=== PATIENT | female | born 1985 | race American Indian/Alaskan Native ===

== ENCOUNTER 2017-08-30 17:37 | Emergency (ER) | payer MEDICAID ==
[2017-08-30 18:04] VITALS: BMI 41.5
[2017-08-30 18:05] VITALS: RESP 20; O2SAT 98
[2017-08-30] MEDS ORDERED: Sodium Chloride 0.9% 1,000 ML IV ONE (19:15)
[2017-08-30] MEDS ORDERED: Iohexol 240 (50 ml) PO ONE (19:15)
[2017-08-30] MEDS ORDERED: Iohexol 240 (50 ml) ONE (19:40)
[2017-08-30] MEDS ORDERED: Iodixanol 320 MG/ML 100 ML BOTTLE IV ONE (19:40)
[2017-08-30] MEDS ORDERED: Sodium Chloride 0.9% 1,000 ML ONE (19:41)
[2017-08-30 20:13] LABS: BASO # 0.1 K/uL (0.0-0.2); BASO % 0.6 % (0.0-2.0); EOS # 0.3 K/uL (0.0-0.7); EOS % 3.3 % (0.0-4.0); HEMOGLOBIN 13.7 g/dL (11.0-16.0); LYMPH # 3.1 K/uL (1.0-4.3); LYMPH % 34.4 % (20.0-40.0); MEAN CORPUSCULAR HEMOGLOBIN 32.1 pg (27.0-31.0); MEAN CORPUSCULAR HGB CONC 33.8 g/dL (33.0-37.0); MEAN PLATELET VOLUME 8.7 fL (7.2-11.7); MONO # 0.6 K/uL (0.0-0.8); MONO % 7.2 % (0.0-10.0); NEUT # 4.9 K/uL (1.8-7.0); NEUT % 54.5 % (50.0-75.0); NRBC % 0.1 % (0.0-2.0); RBC 4.27 Mil/uL (3.80-5.20); RED CELL DISTRIBUTION WIDTH 13.6 % (11.5-14.5); WHITE BLOOD COUNT 8.9 K/uL (4.8-10.8)
[2017-08-30 20:24] LABS: CALCIUM 8.7 mg/dl (8.6-10.4); GFR AFRICAN-AMERICAN > 60; GFR NON-AFRICAN AMERICAN > 60; LIPASE 58 U/L (23-300)
--- NOTE | 2017-08-30 20:24 | C.PDOC ---
History Of Present Illness 31 year old female, with no significant PMHx, presents to the ED for evaluation of generalized abdominal pain which began 2 days ago. Patient describes her symptoms as an intermittent "twisting" discomfort that has been worsening since onset. She also reports mild nausea but denies any episodes of vomiting. Patient's bowel movement consisted of soft, mushy stool two days ago. She denies diarrhea, fever, chills, dysuria, and hematuria at this time. Her LMP was 07/25. Time Seen by Provider: 08/30/17 19:00 Chief Complaint (Nursing): Abdominal Pain History Per: Patient History/Exam Limitations: no limitations Onset/Duration Of Symptoms: Days (2), Intermittent Episodes Current Symptoms Are (Timing): Worse Location Of Pain/Discomfort: Diffuse Radiation Of Pain To:: None Quality Of Discomfort: "Pain", Other (twisting ) Associated Symptoms: Nausea. denies: Fever, Chills, Vomiting, Diarrhea, Urinary Symptoms Additional History Per: Patient Past Medical History Reviewed: Historical Data, Nursing Documentation, Vital Signs Vital Signs: Last Vital Signs Temp 97.8 F 08/30/17 18:04 Pulse 81 08/30/17 18:04 Resp 20 08/30/17 18:04 BP 117/79 08/30/17 18:04 Pulse Ox 98 08/30/17 20:30 - Medical History PMH: No Chronic Diseases Surgical History: No Surg Hx Family History: States: Unknown Family Hx - Social History Hx Alcohol Use: No Hx Substance Use: No - Immunization History Hx Tetanus Toxoid Vaccination: No Hx Influenza Vaccination: No Hx Pneumococcal Vaccination: No Review Of Systems Constitutional: Negative for: Fever, Chills Gastrointestinal: Positive for: Nausea, Abdominal Pain (generalized ). Negative for: Vomiting, Diarrhea Genitourinary: Negative for: Dysuria, Hematuria Physical Exam - Physical Exam Appears: Non-toxic, No Acute Distress Skin: Normal Color, Warm, Dry Head: Atraumatic, Normacephalic Eye(s): bilateral: Normal Inspection Oral Mucosa: Moist Neck: Supple Chest: Symmetrical, No Deformity, No Tenderness Cardiovascular: Rhythm Regular, No Murmur Respiratory: Normal Breath Sounds, No Rales, No Rhonchi, No Wheezing Gastrointestinal/Abdominal: Bowel Sounds (unremarkable ), Soft, Tenderness ( diffuse ), No Guarding, No Rebound Extremity: Normal ROM, Capillary Refill (less than 2 seconds ) Neurological/Psych: Oriented x3, Normal Speech, Normal Cognition ED Course And Treatment - Laboratory Results Result Diagrams: 08/30/17 20:02 08/30/17 20:02 Lab Interpretation: No Acute Changes O2 Sat by Pulse Oximetry: 98 (on RA) Pulse Ox Interpretation: Normal - CT Scan/US CT abdomen and pelvis Other Rad Studies (CT/US): Read By Radiologist, Radiology Report Reviewed CT/US Interpretation: Accession No. : [id number]. Patient Name / ID : XAVIER PALMA / [id number]. Exam Date : 08/30/2017 22:05:47 ( Approved ). Study Comment : Sex / Age : F / 31Y. Creator : Sudhir Perez MD. Dictator : Customs Director : Automotive Service Technician : Sudhir Perez MD. Approver2 : Report Date : 08/30/2017 23:06:00. My Comment : . [facility] Division of Radiology. [address] [place] [address]. Tel. no. . . . Patient Name: LOUIE PARK . Pt. Address: [address] [place] [address] Rec #: [id number]. [place] [address]: Sabine Urbina MD. Pt Order Location: ER. : 1985 Female Age: 31 Order #: [id number]. Reason for exam: abd pain. . . . . . CT Scan. . . ABD PELVIS PO IV CONTRAST Exam Date : 08/30/17. . This imaging exam was performed at [facility]. EXAM: CT Abdomen and Pelvis With Intravenous Contrast. . CLINICAL HISTORY: 31 years old, female; Pain; Abdominal pain; Periumbilical; Additional info: Abd pain. . TECHNIQUE: Axial computed tomography images of the abdomen and pelvis with intravenous. contrast. All CT scans at this facility use one or more dose reduction. techniques, viz.: automated exposure control; ma/kV adjustment per patient size. (including targeted exams where dose is matched to indication; i.e. head); or. iterative reconstruction technique. Coronal and sagittal reformatted images were created and reviewed. . CONTRAST: 100 mL of VISIPAQUEW 320 administered intravenously. . COMPARISON: No relevant prior studies available. . FINDINGS: Lung bases: No acute findings. Heart: Mild cardiomegaly. . ABDOMEN: Liver: Fatty infiltration. Gallbladder and bile ducts: No calcified stones. No ductal dilation. Pancreas: No ductal dilation. No mass. Spleen: No splenomegaly. Adrenals: No mass. Kidneys and ureters: No mass. No hydronephrosis. Stomach and bowel: No definite mural thickening. No obstruction. . PELVIS: Appendix: Normal caliber. No definite inflammation. Bladder: Unremarkable. Reproductive: 2.2 x 2.5 x 2.6 cm hypodense lesion within RIGHT ovary. . ABDOMEN and PELVIS: Intraperitoneal space: Trace free fluid within pelvis. No free air. Bones/ joints: No acute fracture. Soft tissues: Unremarkable. Vasculature: Unremarkable. No aneurysm. Lymph nodes: No pathologically enlarged lymph nodes. . IMPRESSION: 1. Probable RIGHT ovarian cyst. Consider ultrasound. 2. Incidental/non-acute findings are described above. . Dictated By: Sudhir Perez MD. Dictated Date/Time: 08/30/172305. Signed By: Sudhir Perez MD. Date Signed: 08/30/172305. Transcribed By: [facility]. Transcribe Date/Time : 08/30/172305 Progress Note: Bloodwork, urinalysis, and CT Abdomen/Pelvis ordered and reviewed. Bentyl IM and IV Fluids administered. 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 Prescriptions: Naproxen [Naprosyn] 1 tab PO BID PRN #25 tab PRN Reason: Pain Instructions: Ovarian Cysts Forms: [facility] (Kosovan), Work Excuse - Clinical Impression Clinical Impression: Ovarian cyst - Scribe Statement The provider has reviewed the documentation as recorded by the Scribe (Anna Monsivais) Provider Attestation: All medical record entries made by the Scribe were at my direction and personally dictated by me. I have reviewed the chart and agree that the record accurately reflects my personal performance of the history, physical exam, medical decision making, and the department course for this patient. I have also personally directed, reviewed, and agree with the discharge instructions and disposition.
[2017-08-30 20:25] LABS: ALB/GLOB RATIO 0.9 (1.0-2.1); ALBUMIN 4.2 g/dL (3.5-5.0); ALT/SGPT < 6 U/L (9-52); AST/SGOT 36 U/L (14-36); BLOOD UREA NITROGEN 11 mg/dL (7-17)
[2017-08-30 20:55] LABS: HCG,QUALITATIVE URINE NEGATIVE (NEGATIVE)
[2017-08-30 20:59] LABS: SQUAMOUS EPITHIAL 12 /hpf (0-5); URINE BILIRUBIN NEGATIVE (NEGATIVE); URINE BLOOD NEGATIVE (NEGATIVE); URINE CLARITY Hazy (Clear); URINE COLOR Yellow (YELLOW); URINE GLUCOSE (UA) NORMAL (Normal); URINE LEUKOCYTE ESTERASE NEG Leu/uL (Negative); URINE PROTEIN NEGATIVE (NEGATIVE)
--- NOTE | 2017-08-30 23:06 | CT ---
EXAM: CT Abdomen and Pelvis With Intravenous Contrast CLINICAL HISTORY: 31 years old, female; Pain; Abdominal pain; Periumbilical; Additional info: Abd pain TECHNIQUE: Axial computed tomography images of the abdomen and pelvis with intravenous contrast. All CT scans at this facility use one or more dose reduction techniques, viz.: automated exposure control; ma/kV adjustment per patient size (including targeted exams where dose is matched to indication; i.e. head); or iterative reconstruction technique. Coronal and sagittal reformatted images were created and reviewed. CONTRAST: 100 mL of VISIPAQUEW 320 administered intravenously. COMPARISON: No relevant prior studies available. FINDINGS: Lung bases: No acute findings. Heart: Mild cardiomegaly. ABDOMEN: Liver: Fatty infiltration. Gallbladder and bile ducts: No calcified stones. No ductal dilation. Pancreas: No ductal dilation. No mass. Spleen: No splenomegaly. Adrenals: No mass. Kidneys and ureters: No mass. No hydronephrosis. Stomach and bowel: No definite mural thickening. No obstruction. PELVIS: Appendix: Normal caliber. No definite inflammation. Bladder: Unremarkable. Reproductive: 2.2 x 2.5 x 2.6 cm hypodense lesion within RIGHT ovary. ABDOMEN and PELVIS: Intraperitoneal space: Trace free fluid within pelvis. No free air. Bones/joints: No acute fracture. Soft tissues: Unremarkable. Vasculature: Unremarkable. No aneurysm. Lymph nodes: No pathologically enlarged lymph nodes. IMPRESSION: 1. Probable RIGHT ovarian cyst. Consider ultrasound. 2. Incidental/non-acute findings are described above.
[2017-08-30 23:43] VITALS: BP 114/80; PULSE 70; TEMP 98
== END 2017-08-30 23:43 | disposition home or self-care (01) ==
LOC: C.ER 17:37
DX: N83.209 Unspecified ovarian cyst, unspecified side (principal)
CPT/HCPCS: 74177; 80053; 81001; 83690; 84703; 85025; 96360; 99285; J7040; Q9966; Q9967